=== PATIENT | female | born 1935 | race Caucasian/White ===

== ENCOUNTER 2023-02-02 12:16 | Emergency (ER) | payer MEDICARE, BC ==
[2023-02-02 12:39] VITALS: BP 148/50; PULSE 63
[2023-02-02] MEDS ORDERED: Nirmatrelvir/Ritonavir 150 MG/100 MG Dose Pack ONE (13:36)
[2023-02-02] MEDS ORDERED: Nirmatrelvir/Ritonavir 150 MG/100 MG Dose Pack PO SCH (20:00)
== END 2023-02-02 14:00 | disposition home or self-care (01) ==
LOC: CC.ED 12:16
DX: U07.1 COVID-19 (principal); Z88.1 Allergy status to other antibiotic agents; Z88.8 Allergy status to other drugs, medicaments and biological substances; Z88.2 Allergy status to sulfonamides
CPT/HCPCS: 99283; A9270-GY; U0002

== ENCOUNTER 2025-04-24 12:47 | Emergency (ER) | payer MEDICARE, BC ==
[2025-04-24 13:01] VITALS: BP 151/54; PULSE 53
[2025-04-24 13:21] LABS: APPEARANCE,URINE CLEAR (CLEAR); GLUCOSE,URINE NEGATIVE (NEGATIVE); OCCULT BLOOD,URINE NEGATIVE (NEGATIVE)
[2025-04-24 13:32] LABS: BASOPHILS ABSOLUTE AUTO 0.02 10^3/uL (0.00-0.50); BASOPHILS PERCENT AUTO 0.2 % (0-1); EOSINOPHILS ABSOLUTE AUTO 0.11 10^3/uL (0.00-1.50); EOSINOPHILS PERCENT AUTO 1.2 % (0-6); IMMATURE GRAN ABSOLUTE AUTO 0.02 10^3/uL (0.00-0.49); IMMATURE GRAN PERCENT AUTO 0.2 % (0.0-4.9); LYMPHOCYTES ABSOLUTE AUTO 0.99 10^3/uL (0.60-5.00); LYMPHOCYTES PERCENT AUTO 10.9 % (24-44); MONOCYTES ABSOLUTE AUTO 0.60 10^3/uL (0.00-1.50); MONOCYTES PERCENT AUTO 6.6 % (0-10); NEUTROPHILS ABSOLUTE AUTO 7.34 x10^3/uL (1.80-8.00); NEUTROPHILS PERCENT AUTO 80.9 % (41-71); PLATELET COUNT,PLT 320 10^3/uL (150-400); RED BLOOD CELL COUNT 3.35 x10^6/uL (4.00-5.50); WHITE BLOOD CELL COUNT,WBC 9.1 10^3/uL (4.0-11.0)
[2025-04-24 13:43] LABS: INR 1.01 (0.92-1.18); PTT,PARTIAL THROMBOPLSTIN TIME 21.6 SEC (20.0-30.0)
[2025-04-24 13:45] LABS: ALANINE AMINOTRANSFERASE,ALT 21 U/L (12-78); ASPARTATE AMNIOTRANSFERASE,AST 19 U/L (15-37); BILIRUBIN TOTAL 0.5 mg/dL (0.0-1.0); BLOOD UREA NITROGEN,BUN 20 mg/dL (7-18); CARBON DIOXIDE,CO2 31 mmol/L (21-32); CHLORIDE,CL 101 mEq/L (98-106); CREATININE 0.7 mg/dL (0.6-1.0); EST CRCL DRUG DOSING (CG) 37.06 mL/min; ESTIMATED GFR 83 mL/min (>=60); GLUCOSE RANDOM 94 mg/dL (75-99); POTASSIUM,K 4.4 mEq/L (3.5-5.0); PROTEIN TOTAL,TP 6.6 g/dL (6.4-8.2); SODIUM,NA 139 mEq/L (136-145)
[2025-04-24] MEDS: Iopamidol 755 Mg/ML 100 ML Bottle IVPUSH ONE (14:43)
== END 2025-04-24 17:34 | disposition home or self-care (01) ==
LOC: CC.ED 12:47
DX: R53.1 Weakness (principal); I10 Essential (primary) hypertension; Z79.899 Other long term (current) drug therapy; Z79.82 Long term (current) use of aspirin; Z88.8 Allergy status to other drugs, medicaments and biological substances; Z88.1 Allergy status to other antibiotic agents; Z88.2 Allergy status to sulfonamides
CPT/HCPCS: 36415; 70450; 70496; 70498; 80053; 81003; 85025; 85610; 85730; 86140; 93005; 93010; 99284; 99285; Q9967